=== PATIENT | male | born 1995 | race Two or more races ===

== ENCOUNTER 2018-07-14 01:22 | Emergency (ER) | payer MEDICAID, OTHER ==
[~2018-07-14] VITALS: Ht 172.7 cm; Wt 80.0 kg
[2018-07-14] MEDS ORDERED: PROPOFOL 10 MG/ML, 20ML IVPush ONE (01:30)
[2018-07-14] MEDS ORDERED: PROPOFOL 10 MG/ML, 20ML ONE (01:33)
[2018-07-14 02:58] VITALS: BP 134/77
== END 2018-07-14 03:39 | disposition home or self-care (01) ==
LOC: ED 03:35
DX: S43.084A Other dislocation of right shoulder joint, initial encounter (principal); S42.309A Unspecified fracture of shaft of humerus, unspecified arm, initial encounter for closed fracture; X50.0XXA Overexertion from strenuous movement or load, initial encounter; Y93.89 Activity, other specified; Y92.009 Unspecified place in unspecified non-institutional (private) residence as the place of occurrence of the external cause; Y99.8 Other external cause status
CPT/HCPCS: 23650; 99285